=== PATIENT | male | born 1985 ===

== ENCOUNTER 2017-10-07 18:46 | Emergency (ER) | payer OTHER, BC ==
[~2017-10-07] VITALS: Ht 198.1 cm; Wt 95.5 kg
[2017-10-07 19:06] VITALS: BP 120/84; PULSE 87; TEMP 97.7
== END 2017-10-07 23:46 | disposition home or self-care (01) ==
LOC: COL.ER 18:46
DX: S20.219A Contusion of unspecified front wall of thorax, initial encounter (principal); S80.212A Abrasion, left knee, initial encounter; S60.511A Abrasion of right hand, initial encounter; V49.40XA Driver injured in collision with unspecified motor vehicles in traffic accident, initial encounter

== ENCOUNTER 2022-04-02 19:22 | Emergency (ER) | payer SELFPAY ==
[~2022-04-02] VITALS: Ht 198.1 cm; Wt 102.3 kg
[2022-04-02 19:24] VITALS: TEMP 97.2
[2022-04-02 21:20] VITALS: BP 106/72; PULSE 76
== END 2022-04-02 21:20 | disposition home or self-care (01) ==
LOC: COL.ER 19:22
DX: S93.401A Sprain of unspecified ligament of right ankle, initial encounter (principal); Z28.310 Unvaccinated for COVID-19; X50.1XXA Overexertion from prolonged static or awkward postures, initial encounter; Y92.59 Other trade areas as the place of occurrence of the external cause; Y99.0 Civilian activity done for income or pay

== ENCOUNTER 2022-09-28 12:09 | Emergency (ER) | payer BC ==
[~2022-09-28] VITALS: Ht 198.1 cm; Wt 100.0 kg
[2022-09-28 12:20] VITALS: TEMP 98.2
[2022-09-28 13:11] LABS: BASO % 0.4 % (0.0-2.0); EOS % 0.6 % (0.0-4.0); GRAN # 4.8 K/mm3 (1.4-6.5); GRAN % 66.3 % (42.2-75.2); HEMATOCRIT 46.1 % (42.0-52.0); LYMPH # 1.7 K/mm3 (1.2-3.4); LYMPH % 24.1 % (20.0-51.0); MEAN CELL VOLUME 88 fl (80.0-100.0); MEAN CORPUSCULAR HEMOGLOBIN 31 pg (27-31); MEAN CORPUSCULAR HGB CONC 35 g/dl (33.0-37.0); MEAN PLATELET VOLUME 9.5 fl (7.4-10.4); MONO # 0.6 K/mm3 (0.1-0.6); MONO % 8.5 % (1.7-9.3); PLATELET COUNT 268 K/mm3 (130-400); RED BLOOD COUNT 5.23 M/mm3 (4.20-5.60); REDCELL DISTRIBUTION WIDTH-CV 11.4 % (11.5-14.5)
[2022-09-28 13:29] LABS: ANION GAP 12 mmol/L (7-16); BLOOD UREA NITROGEN 17 mg/dL (9-21); CALCIUM 9.5 mg/dL (8.4-10.2); CARBON DIOXIDE 23 mmol/L (22-29); CHLORIDE 105 mmol/L (98-107); CREATININE, serum 0.85 mg/dL (0.72-1.25); GLUCOSE 101 mg/dL (70-99); POTASSIUM 4.7 mmol/L (3.5-4.5); SODIUM 140 mmol/L (136-145)
[2022-09-28 13:40] LABS: TROPONIN-I < 0.010 ng/mL (0.00-0.033)
[2022-09-28 14:24] VITALS: BP 113/86; PULSE 78
== END 2022-09-28 14:29 | disposition home or self-care (01) ==
LOC: COL.ER 12:09
PROVIDERS: Emergency Medicine
DX: R07.9 Chest pain, unspecified (principal); R00.0 Tachycardia, unspecified; Z28.310 Unvaccinated for COVID-19
CPT/HCPCS: J1885